=== PATIENT | female | born 1965 | race Caucasian/White ===

== ENCOUNTER 2016-12-12 01:14 | Emergency (ER) | payer BC ==
[2016-12-12 01:24] VITALS: BP 173/90
[2016-12-12 01:53] LABS: CHLORIDE,CL 106 mmol/L (101-111); SODIUM,NA 142 mmol/L (135-145)
--- NOTE | 2016-12-12 05:46 | EDM.PDOC ---
ED HPI GENERAL MEDICAL PROBLEM - General Chief Complaint: Cardiovascular Problem Stated Complaint: HEART FEELS FUNNY Time Seen by Provider: 12/12/16 01:25 Source of Information: Reports: Patient History Limitations: Reports: No Limitations - History of Present Illness INITIAL COMMENTS - FREE TEXT/NARRATIVE: ED with complaint of heart feeling different, like "flipping", mild discomfort to chest and epigastric, Reports feeling drained and wanting to sleep after. Onset: Today - Related Data Allergies Allergy/AdvReac Type Severity Reaction Status Date / Time aspirin Allergy unknown Verified 10/09/14 04:09 fentanyl Allergy Cannot Verified 12/12/16 01:20 Remember Home Meds: Home Meds Ferrous Sulfate [Iron Supplement] 325 mg PO DAILY 12/10/13 [History] Ursodiol [Ursodiol] 500 mg PO BID 12/10/13 [History] Acetaminophen [Tylenol Extra Strength] 1,000 mg PO Q6H PRN 10/07/14 [History] Docusate Sodium [Colace] 100 mg PO BID 10/07/14 [History] Ascorbic Acid [Vitamin C] 100 mg PO DAILY 11/20/14 [History] Amitriptyline HCl [Amitriptyline HCl] 50 mg PO DAILY 12/12/16 [History] Obeticholic Acid [Ocaliva] 10 mg PO DAILY 12/12/16 [History] Past Medical History Other Gastrointestinal History: PVC - Past Surgical History GI Surgical History: Reports: Appendectomy Female Surgical History: Reports: Hysterectomy Social & Family History - Family History Family Medical History: Noncontributory - Tobacco Use Smoking Status *Q: Never Smoker Second Hand Smoke Exposure: No - Caffeine Use Caffeine Use: Reports: Coffee - Alcohol Use Days Per Week of Alcohol Use: 0 - Recreational Drug Use Recreational Drug Use: No Drug Use in Last 12 Months: No - Living Situation & Occupation Occupation: Employed ED ROS GENERAL - Review of Systems Review Of Systems: See Below Constitutional: Reports: No Symptoms HEENT: Reports: Eye Discharge Respiratory: Reports: No Symptoms Cardiovascular: Reports: Chest Pain Endocrine: Reports: No Symptoms GI/Abdominal: Reports: No Symptoms Skin: Reports: No Symptoms Neurological: Reports: No Symptoms ED EXAM, GENERAL - Physical Exam Exam: See Below Exam Limited By: No Limitations General Appearance: Alert, Anxious Eye Exam: Bilateral Eye: EOMI, Normal Fundi Ears: Normal External Exam Ear Exam: Bilateral Ear: TM Red Nose: Normal Inspection Throat/Mouth: Normal Inspection Head: Atraumatic, Normocephalic Neck: Normal Inspection Respiratory/Chest: No Respiratory Distress, Lungs Clear Cardiovascular: Normal Peripheral Pulses, Regular Rate, Rhythm GI/Abdominal: Normal Bowel Sounds (Female) Exam: Cervical Fluid Course - Vital Signs Last Recorded V/S: Last Vital Signs Temp 97.4 F 12/12/16 01:22 Pulse 80 12/12/16 01:22 Resp 16 12/12/16 01:22 BP 173/90 H 12/12/16 01:22 Pulse Ox 100 12/12/16 01:22 - Orders/Labs/Meds Labs: Laboratory Tests 12/12/16 12/12/16 12/12/16 Range/Units 01:25 01:25 01:25 WBC 7.8 (5.0-10.0) 10^3/uL RBC 3.85 L (4.2-5.4) 10^6/uL Hgb 12.5 (12.0-16.0) g/dL Hct 38.4 (37.0-47.0) % MCV 99.7 (80-100) fL MCH 32.5 (27.0-34.0) pg MCHC 32.6 L (33.0-35.0) g/dL Plt Count 273 (150-450) 10^3/uL Neut % (Auto) 30.9 L (42.2-75.2) % Lymph % (Auto) 58.0 H (20.5-50.1) % [place] % (Auto) 9.3 H (2-8) % Eos % (Auto) 1.5 (1.0-3.0) % Baso % (Auto) 0.3 (0.0-1.0) % Sodium 142 (135-145) mmol/L Potassium 3.4 L (3.6-5.0) mmol/L Chloride 106 (101-111) mmol/L Carbon Dioxide 25.0 (21.0-31.0) mmol/L Anion Gap 14.4 BUN 20 H (7-18) mg/dL Creatinine 0.7 (0.6-1.3) mg/dL Est Cr Clr Drug Dosing 80.26 mL/min Estimated GFR (MDRD) > 60 BUN/Creatinine Ratio 28.57 Glucose 94 (74-105) mg/dL Calcium 9.4 (8.4-10.2) mg/dl Total Bilirubin 0.4 (0.2-1.0) mg/dL AST 37 (10-42) IU/L ALT 49 (10-60) IU/L Alkaline Phosphatase 158 H (42-121) IU/L CK-MB (CK-2) 6.50 H (0.4-4.7) ng/mL Troponin I 0.02 (0.00-0.02) ng/ml Total Protein 8.1 (6.7-8.2) g/dl Albumin 3.8 (3.2-5.5) g/dl Globulin 4.3 Albumin/Globulin Ratio 0.88 /04/18 Range/Units 05:13 WBC (5.0-10.0) 10^3/uL RBC (4.2-5.4) 10^6/uL Hgb (12.0-16.0) g/dL Hct (37.0-47.0) % MCV (80-100) fL MCH (27.0-34.0) pg MCHC (33.0-35.0) g/dL Plt Count (150-450) 10^3/uL Neut % (Auto) (42.2-75.2) % Lymph % (Auto) (20.5-50.1) % [place] % (Auto) (2-8) % Eos % (Auto) (1.0-3.0) % Baso % (Auto) (0.0-1.0) % Sodium (135-145) mmol/L Potassium (3.6-5.0) mmol/L Chloride (101-111) mmol/L Carbon Dioxide (21.0-31.0) mmol/L Anion Gap BUN (7-18) mg/dL Creatinine (0.6-1.3) mg/dL Est Cr Clr Drug Dosing mL/min Estimated GFR (MDRD) BUN/Creatinine Ratio Glucose (74-105) mg/dL Calcium (8.4-10.2) mg/dl Total Bilirubin (0.2-1.0) mg/dL AST (10-42) IU/L ALT (10-60) IU/L Alkaline Phosphatase (42-121) IU/L CK-MB (CK-2) (0.4-4.7) ng/mL Troponin I 0.02 (0.00-0.02) ng/ml Total Protein (6.7-8.2) g/dl Albumin (3.2-5.5) g/dl Globulin Albumin/Globulin Ratio - Radiology Interpretation Free Text/Narrative:: CXR normal Departure - Departure Time of Disposition: 05:46 Disposition: Home, Self-Care 01 Condition: Good Clinical Impression: Palpitations Instructions: Heart Attack, [id number] Referrals: Elfego Rizo MD [Primary Care Provider] - Forms: ED Department Discharge Additional Instructions: rest fluids Urgent follow up if chest pain Limit caffeine and energy drinks
--- NOTE | 2016-12-21 10:00 | EKG ---
12/12/2016- MELITON OZUNA - This is a standard 12-lead EKG showing normal sinus rhythm, with ventricular rate 86 beats per minute. Normal QRS duration. Normal [place] interval. No significant ST-T changes. [facility] /[id number]
== END 2016-12-12 05:59 | disposition home or self-care (01) ==
LOC: DL.ED 01:14
DX: R00.2 Palpitations (principal); Z88.6 Allergy status to analgesic agent; Z88.1 Allergy status to other antibiotic agents; Z79.899 Other long term (current) drug therapy; Z90.49 Acquired absence of other specified parts of digestive tract; Z90.710 Acquired absence of both cervix and uterus
CPT/HCPCS: 36415; 71010; 80053; 82553; 84484; 85025; 93005; 99285

== ENCOUNTER 2016-12-12 14:46 | Emergency (ER) | payer BC ==
[2016-12-12 15:09] VITALS: BP 156/88
[2016-12-12 17:22] LABS: CHLORIDE,CL 104 mmol/L (101-111); SODIUM,NA 140 mmol/L (135-145)
--- NOTE | 2016-12-21 10:03 | EKG ---
12/12/2016- MELITON OZUNA - This is a 12-lead standard EKG showing normal sinus rhythm, with ventricular rate 84 beats per minute. Normal MT interval, QRS duration. Normal axis. No significant ST-T changes. [facility] /[id number]
--- NOTE | 2017-01-01 08:45 | EDM.PDOC ---
Scribed by Katie Dexter 12/12/16 [id number] for Michael Al MD ED HPI GENERAL MEDICAL PROBLEM - General Chief Complaint: General Stated Complaint: FEELING SEEK Time Seen by Provider: 12/12/16 16:35 Source of Information: Reports: Patient, RN, RN Notes Reviewed History Limitations: Reports: No Limitations - History of Present Illness INITIAL COMMENTS - FREE TEXT/NARRATIVE: Patient arrived by POV with complaint of recurrent palpitations. She was seen in ER earlier today with the same complaint and had a negative work up. Returns because the symptoms persist. Location: Reports: Chest Quality: Reports: Ache Severity: Moderate Improves with: Reports: None Worsens with: Reports: None Associated Symptoms: Reports: No Other Symptoms - Related Data Allergies Allergy/AdvReac Type Severity Reaction Status Date / Time aspirin Allergy unknown Verified 10/09/14 04:09 fentanyl Allergy Cannot Verified 12/12/16 01:20 Remember Home Meds: Home Meds Ferrous Sulfate [Iron Supplement] 325 mg PO DAILY 12/10/13 [History] Ursodiol [Ursodiol] 500 mg PO BID 12/10/13 [History] Acetaminophen [Tylenol Extra Strength] 1,000 mg PO Q6H PRN 10/07/14 [History] Docusate Sodium [Colace] 100 mg PO BID 10/07/14 [History] Ascorbic Acid [Vitamin C] 100 mg PO DAILY 11/20/14 [History] Amitriptyline HCl [Amitriptyline HCl] 50 mg PO DAILY 12/12/16 [History] Obeticholic Acid [Ocaliva] 10 mg PO DAILY 12/12/16 [History] Past Medical History HEENT History: Reports: Impaired Vision Other Gastrointestinal History: PVC Psychiatric History: Reports: Anxiety - Past Surgical History GI Surgical History: Reports: Appendectomy, Cholecystectomy Female Surgical History: Reports: Hysterectomy Musculoskeletal Surgical History: Reports: Carpal Tunnel Social & Family History - Family History Family Medical History: Noncontributory - Tobacco Use Smoking Status *Q: Never Smoker Second Hand Smoke Exposure: No - Caffeine Use Caffeine Use: Reports: Coffee, Tea - Alcohol Use Days Per Week of Alcohol Use: 0 - Recreational Drug Use Recreational Drug Use: No Drug Use in Last 12 Months: No - Living Situation & Occupation Occupation: Employed ED ROS GENERAL - Review of Systems Review Of Systems: ROS reveals no pertinent complaints other than HPI. ED EXAM, GENERAL - Physical Exam Exam: See Below Exam Limited By: No Limitations General Appearance: Alert, WD/WN, No Apparent Distress Eye Exam: Bilateral Eye: Normal Inspection Ears: Normal External Exam, Normal Canal, Hearing Grossly Normal, Normal TMs Nose: Normal Inspection, Normal Mucosa, No Blood Throat/Mouth: Normal Inspection, Normal Lips, Normal Teeth, Normal Gums, Normal Oropharynx, Normal Voice, No Airway Compromise Head: Atraumatic, Normocephalic Neck: Normal Inspection, Supple, Non-Tender, Full Range of Motion Respiratory/Chest: No Respiratory Distress, Lungs Clear, Normal Breath Sounds, No Accessory Muscle Use, Chest Non-Tender Cardiovascular: Normal Peripheral Pulses, Regular Rate, Rhythm, No Edema, No Gallop, No JVD, No Murmur, No Rub GI/Abdominal: Normal Bowel Sounds, Soft, Non-Tender, No Organomegaly, No Distention, No Abnormal Bruit, No Mass (Female) Exam: Deferred Rectal (Female) Exam: Deferred Back Exam: Normal Inspection, Full Range of Motion, NT Extremities: Normal Inspection, Normal Range of Motion, Non-Tender, Normal Capillary Refill, No Pedal Edema Neurological: Alert, Oriented, CN II-XII Intact, Normal Cognition, Normal Gait, Normal Reflexes, No Motor/Sensory Deficits Psychiatric: Anxious Skin Exam: Warm, Dry, Intact, Normal Color, No Rash EKG INTERPRETATION EKG Date: 12/12/16 Time: 16:47 Rhythm: Other (sinus rhythm) Rate (Beats/Min): 85 [place]: Normal P-Wave: Present QRS: Normal ST-T: Normal QT: Normal Course - Vital Signs Last Recorded V/S: Last Vital Signs Temp 36.7 C 12/12/16 15:08 Pulse 74 12/12/16 15:08 Resp 16 12/12/16 15:08 BP 156/88 H 12/12/16 15:08 Pulse Ox 100 12/12/16 15:08 - Orders/Labs/Meds Labs: Laboratory Tests 12/12/16 12/12/16 12/12/16 Range/Units 16:57 16:57 16:57 WBC 5.9 (5.0-10.0) 10^3/uL RBC 3.71 L (4.2-5.4) 10^6/uL Hgb 12.0 (12.0-16.0) g/dL Hct 37.2 (37.0-47.0) % MCV 100.3 H (80-100) fL MCH 32.3 (27.0-34.0) pg MCHC 32.3 L (33.0-35.0) g/dL Plt Count 279 (150-450) 10^3/uL Neut % (Auto) 37.9 L (42.2-75.2) % Lymph % (Auto) 52.5 H (20.5-50.1) % [place] % (Auto) 8.1 H (2-8) % Eos % (Auto) 1.2 (1.0-3.0) % Baso % (Auto) 0.3 (0.0-1.0) % Sodium 140 (135-145) mmol/L Potassium 4.5 (3.6-5.0) mmol/L Chloride 104 (101-111) mmol/L Carbon Dioxide 25.0 (21.0-31.0) mmol/L Anion Gap 15.5 BUN 17 (7-18) mg/dL Creatinine 0.7 (0.6-1.3) mg/dL Est Cr Clr Drug Dosing TNP Estimated GFR (MDRD) > 60 BUN/Creatinine Ratio 24.28 Glucose 94 (74-105) mg/dL Calcium 9.3 (8.4-10.2) mg/dl Magnesium 2.1 (1.8-2.5) mg/dL Total Bilirubin 0.3 (0.2-1.0) mg/dL AST 36 (10-42) IU/L ALT 49 (10-60) IU/L Alkaline Phosphatase 158 H (42-121) IU/L Troponin I < 0.02 (0.00-0.02) ng/ml Total Protein 8.1 (6.7-8.2) g/dl Albumin 3.8 (3.2-5.5) g/dl Globulin 4.3 Albumin/Globulin Ratio 0.88 TSH, Ultra Sensitive 2.44 (0.35-7.0) uIu/mL Departure - Departure Time of Disposition: 18:49 Disposition: Home, Self-Care 01 Condition: Fair Clinical Impression: Palpitations - Discharge Information Instructions: Palpitations, [id number] Referrals: Darrius,Somasundar, MD [Primary Care Provider] - Forms: ED Department Discharge Additional Instructions: Follow up in clinic on Wednesday. Have your doctor review the ER visits and diagnostic results and discuss a 7 day cardiac event monitor with your doctor. Avoid caffeine, decongestants or any other stimulants. I have read and agree with the documentation that has been completed regarding this visit. By signing this record, I attest that the documentation was completed in my physical presence and is an accurate record of the encounter.
== END 2016-12-12 19:05 | disposition home or self-care (01) ==
LOC: DL.ED 14:46
DX: R00.2 Palpitations (principal); F41.9 Anxiety disorder, unspecified; Z90.49 Acquired absence of other specified parts of digestive tract; Z90.710 Acquired absence of both cervix and uterus; Z98.890 Other specified postprocedural states; Z79.899 Other long term (current) drug therapy; Z88.8 Allergy status to other drugs, medicaments and biological substances
CPT/HCPCS: 36415; 80053; 83735; 84443; 84484; 85025; 93005; 99285

== ENCOUNTER 2017-08-03 15:46 | Emergency (ER) | payer BC ==
[2017-08-03 16:01] VITALS: BP 167/82
[2017-08-03] MEDS ORDERED: Sodium Chloride 0.9% 1,000 ML IV ONE (16:16)
[2017-08-03] MEDS ORDERED: Ketorolac 30 MG/ML SDV IVPUSH ONE (16:16)
[2017-08-03] MEDS ORDERED: Ondansetron 4 MG/2 ML SDV IV ONE (16:16)
[2017-08-03] MEDS ORDERED: HYDROmorphone 0.5 MG/0.5 ML Syringe IVPUSH ONE ×2 (16:17→17:11)
[2017-08-03] MEDS ORDERED: Gabapentin 300 MG Cap PO ONE (17:17)
--- NOTE | 2017-08-03 17:26 | EDM.PDOC ---
Scribed by Katie Dexter 08/03/17 [id number] for Michael Al MD ED HPI GENERAL MEDICAL PROBLEM - General Chief Complaint: Headache Stated Complaint: [id number] HEADACHE Time Seen by Provider: 08/03/17 15:50 Source of Information: Reports: Patient, RN, RN Notes Reviewed History Limitations: Reports: No Limitations - History of Present Illness INITIAL COMMENTS - FREE TEXT/NARRATIVE: Patient presents with complaint of onset of generalized headache on Wednesday, , that gradually developed throughout the day and has been persistent since. Patient has history of chronic headaches with the same symptoms as this headache, but they usually resolve in less than 2-3 days with rest and generic Excedrin. She has taken the generic Excedrin but this time it hasn't helped. She admits to photophobia and nausea. Denies vomiting or visual symptoms. 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) Headache Pain Score (Numeric/FACES): 7 - Related Data Allergies Allergy/AdvReac Type Severity Reaction Status Date / Time aspirin Allergy Bleeding Verified 08/03/17 15:50 fentanyl Allergy Difficulty Verified 08/03/17 16:08 Breathing latex Allergy Rash Verified 08/03/17 15:50 Home Meds: Home Meds Ferrous Sulfate [Iron Supplement] 325 mg PO DAILY 12/10/13 [History] Ursodiol 500 mg PO BID 12/10/13 [History] Acetaminophen [Tylenol Extra Strength] 1,000 mg PO Q6H PRN 10/07/14 [History] Docusate Sodium [Colace] 100 mg PO BID 10/07/14 [History] Ascorbic Acid [Vitamin C] 100 mg PO DAILY 11/20/14 [History] Amitriptyline HCl 35 mg PO BEDTIME 12/12/16 [History] Obeticholic Acid [Ocaliva] 10 mg PO DAILY 12/12/16 [History] Multivitamin [Multivitamins] 1 cap PO DAILY 08/03/17 [History] Past Medical History HEENT History: Reports: Impaired Vision, Other (See Below) Gastrointestinal History: Reports: Other (See Below) (nonalcoholic liver disease.) Other Gastrointestinal History: PVC Musculoskeletal History: Reports: Other (See Below) (trigger finger) Neurological History: Reports: Headaches, Chronic Psychiatric History: Reports: Anxiety - Past Surgical History GI Surgical History: Reports: Appendectomy, Cholecystectomy Female Surgical History: Reports: Hysterectomy Musculoskeletal Surgical History: Reports: Carpal Tunnel, Other (See Below) ( trigger finger release) Social & Family History - Family History Family Medical History: Noncontributory - Tobacco Use Smoking Status *Q: Never Smoker Second Hand Smoke Exposure: No - Caffeine Use Caffeine Use: Reports: Coffee, Tea - Alcohol Use Days Per Week of Alcohol Use: 0 - Recreational Drug Use Recreational Drug Use: No Drug Use in Last 12 Months: No - Living Situation & Occupation Occupation: Employed ED ROS GENERAL - Review of Systems Review Of Systems: ROS reveals no pertinent complaints other than HPI. - Physical Exam Exam: See Below Exam Limited By: No Limitations General Appearance: Alert, WD/WN, No Apparent Distress Eye Exam: Bilateral Eye: Other (photophobia) Ears: Normal External Exam, Normal Canal, Hearing Grossly Normal, Normal TMs Nose: Normal Inspection, Normal Mucosa, No Blood Throat/Mouth: Normal Inspection, Normal Lips, Normal Teeth, Normal Gums, Normal Oropharynx, Normal Voice, No Airway Compromise Head Exam: Atraumatic, Normocephalic Respiratory/Chest: Other (paraspinal muscle tenderness or spasms) Cardiovascular: Normal Peripheral Pulses GI/Abdominal: Normal Bowel Sounds, Soft, Non-Tender, No Organomegaly, No Distention, No Abnormal Bruit, No Mass (Female) Exam: Deferred Rectal (Female) Exam: Deferred Neuro Exam (Abbreviated): Alert, Oriented, CN II-XII Intact, Normal Cognition, Normal Gait, Normal Reflexes, No Motor/Sensory Deficits Back Exam: Normal Inspection, Full Range of Motion, NT Extremities: Normal Inspection, Normal Range of Motion, Non-Tender, No Pedal Edema, Normal Capillary Refill Psychiatric: Normal Affect, Normal Mood Skin Exam: Warm, Dry, Intact, Normal Color, No Rash Course - Vital Signs Last Recorded V/S: Last Vital Signs Temp 35.9 C 08/03/17 15:59 Pulse 69 08/03/17 15:59 Resp 18 08/03/17 15:59 BP 167/82 H 04/03/18 15:59 Pulse Ox 100 08/03/17 15:59 - Orders/Labs/Meds Meds: Medications Discontinued Medications Generic Name Dose Route Start Last Admin Trade Name Aj PRN Reason Stop Dose Admin Gabapentin 300 mg 08/03/17 17:17 Neurontin PO 08/03/17 17:18 ONETIME ONE Hydromorphone HCl 0.25 mg 08/03/17 16:17 08/03/17 16:32 Dilaudid IVPUSH 08/03/17 16:18 0.25 mg ONETIME ONE Administration Hydromorphone HCl 0.25 mg 08/03/17 17:11 08/03/17 17:17 Dilaudid IVPUSH 08/03/17 17:12 0.25 mg ONETIME ONE Administration Sodium Chloride 1,000 mls @ 999 mls/hr 08/03/17 16:16 08/03/17 16:30 Normal Saline IV 08/03/17 17:16 999 mls/hr .BOLUS ONE Administration Ketorolac Tromethamine 30 mg 08/03/17 16:16 08/03/17 16:32 Toradol IVPUSH 08/03/17 16:17 30 mg ONETIME ONE Administration Ondansetron HCl 4 mg 08/03/17 16:16 08/03/17 16:32 Zofran IV 08/03/17 16:17 4 mg ONETIME ONE Administration Departure - Departure Time of Disposition: 17:26 Disposition: Home, Self-Care 01 Condition: Good Clinical Impression: Headache syndrome Headache Qualifiers: Headache type: unspecified Headache chronicity pattern: chronic headache Intractability: intractable Qualified Code(s): R51 - Headache - Discharge Information Instructions: General Headache Without Cause Forms: ED Department Discharge Additional Instructions: Rx: Reglan (Metoclopramide) 10mg *Do not drive or work while under the influence of this medication. Rx: Gabapentin 300mg *Do not drive or work while under the influence of this medication. Drink plenty of water. Follow up in clinic with your doctor if not improved in 1 to 2 days. Return to ER if worse at any time, or if any new symptoms develop. I have read and agree with the documentation that has been completed regarding this visit. By signing this record, I attest that the documentation was completed in my physical presence and is an accurate record of the encounter.
== END 2017-08-03 17:52 | disposition home or self-care (01) ==
LOC: DL.ED 15:46
DX: G44.89 Other headache syndrome (principal); Z88.6 Allergy status to analgesic agent; Z91.040 Latex allergy status; Z79.899 Other long term (current) drug therapy
CPT/HCPCS: 96361; 96374; 96375; 96376; 99284; A9270; J1170; J1885; J2405; J7030

== ENCOUNTER 2019-03-09 18:51 | Emergency (ER) | payer BC ==
[2019-03-09 18:56] VITALS: BP 136/77; PULSE 71
[2019-03-09] MEDS ORDERED: Sodium Chloride 0.9% 1,000 ML IV ONE (19:01)
[2019-03-09] MEDS ORDERED: Ondansetron 4 MG/2 ML SDV IV ONE (19:01)
[2019-03-09] MEDS ORDERED: Ketorolac 30 MG/ML SDV IVPUSH ONE (19:01)
[2019-03-09] MEDS ORDERED: diphenhydrAMINE 50 MG/ML SDV IVPUSH ONE (19:01)
--- NOTE | 2019-03-09 19:09 | EDM.PDOC ---
ED HPI GENERAL MEDICAL PROBLEM - General Chief Complaint: Headache Stated Complaint: MIGRAINE Time Seen by Provider: 03/09/19 19:08 Source of Information: Reports: Patient, RN History Limitations: Reports: No Limitations - History of Present Illness INITIAL COMMENTS - FREE TEXT/NARRATIVE: C/o frontal headache radiating across top of head, similar to usual headaches. Usually controlled with tylenol. Has not had one this bad for awhile. No triggers. Nausea no vomiting. light and sound sensitive. No relief with Excedrin migraine. Reports chronic daily headaches. Headache Pain Score (Numeric/FACES): 9 - Related Data Allergies Allergy/AdvReac Type Severity Reaction Status Date / Time aspirin Allergy Bleeding Verified 03/09/19 18:56 fentanyl Allergy Difficulty Verified 03/09/19 18:56 Breathing latex Allergy Rash Verified 03/09/19 18:56 Home Meds: Home Meds Ferrous Sulfate [Iron Supplement] 325 mg PO DAILY 12/10/13 [History] Ursodiol 500 mg PO BID 12/10/13 [History] Acetaminophen [Tylenol Extra Strength] 1,000 mg PO Q6H PRN 10/07/14 [History] Docusate Sodium [Colace] 100 mg PO BID 10/07/14 [History] Ascorbic Acid [Vitamin C] 100 mg PO DAILY 11/20/14 [History] Multivitamin [Multivitamins] 1 cap PO DAILY 08/03/17 [History] Past Medical History HEENT History: Reports: Impaired Vision Cardiovascular History: Reports: None Respiratory History: Reports: None Gastrointestinal History: Reports: Other (See Below) Other Gastrointestinal History: PVC Genitourinary History: Reports: None 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 Musculoskeletal History: Reports: Other (See Below) (trigger finger) Neurological History: Reports: Headaches, Chronic Psychiatric History: Reports: Anxiety Endocrine/Metabolic History: Reports: None Hematologic History: 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 Immunologic History: Reports: None Oncologic (Cancer) History: Reports: None Dermatologic History: Reports: None - Infectious Disease History Infectious Disease History: Reports: Chicken Pox, Mumps - Past Surgical History Head Surgeries/Procedures: Reports: None GI Surgical History: Reports: Appendectomy, Cholecystectomy Female Surgical History: Reports: Hysterectomy Musculoskeletal Surgical History: Reports: Carpal Tunnel Social & Family History - Family History Family Medical History: Noncontributory - Tobacco Use Smoking Status *Q: Never Smoker Second Hand Smoke Exposure: No - Caffeine Use Caffeine Use: Reports: Coffee, Tea - Recreational Drug Use Recreational Drug Use: No - Living Situation & Occupation Occupation: Employed ED ROS GENERAL - Review of Systems Review Of Systems: ROS reveals no pertinent complaints other than HPI. - Physical Exam Exam: See Below Exam Limited By: No Limitations General Appearance: Alert, Moderate Distress, Thin Eye Exam: Bilateral Eye: EOMI, PERRL Ears: Normal External Exam, Hearing Grossly Normal Nose: Normal Inspection Throat/Mouth: Normal Inspection Head Exam: Atraumatic, Normocephalic Neck: Normal Inspection, Non-Tender, Full Range of Motion Respiratory/Chest: No Respiratory Distress, Lungs Clear, Normal Breath Sounds Cardiovascular: Normal Peripheral Pulses, Regular Rate, Rhythm Neuro Exam (Abbreviated): Alert, Oriented, Normal Cognition Extremities: Normal Range of Motion Psychiatric: Normal Affect, Normal Mood Skin Exam: Warm, Dry, Intact, Normal Color Course - Vital Signs Last Recorded V/S: Last Vital Signs Temp 97 F 03/09/19 18:53 Pulse 71 03/09/19 18:53 Resp 18 03/09/19 18:53 BP 136/77 03/09/19 18:53 Pulse Ox 100 03/09/19 18:53 - Orders/Labs/Meds Orders: Active Orders 24 hr Category Date Time Status Sodium Chloride 0.9% [Normal Saline] 1,000 ml Med 03/09/19 19:01 Active IV .BOLUS Medication Orders Sodium Chloride (Normal Saline) 1,000 mls @ 999 mls/hr IV .BOLUS ONE Stop: 03/09/19 20:01 Last Admin: 03/09/19 19:09 Dose: 999 mls/hr Labs: Laboratory Tests 03/09/19 03/09/19 Range/Units 19:08 19:08 WBC 5.6 (5.0-10.0) 10^3/uL RBC 3.84 L (4.2-5.4) 10^6/uL Hgb 12.4 (12.0-16.0) g/dL Hct 37.6 (37.0-47.0) % MCV 97.9 (80-100) fL MCH 32.3 (27.0-34.0) pg MCHC 33.0 (33.0-35.0) g/dL Plt Count 242 D (150-450) 10^3/uL Neut % (Auto) 41.0 L (42.2-75.2) % Lymph % (Auto) 46.7 (20.5-50.1) % [place] % (Auto) 9.1 H (2-8) % Eos % (Auto) 2.7 (1.0-3.0) % Baso % (Auto) 0.5 (0.0-1.0) % Sodium 138 (135-145) mmol/L Potassium 4.2 (3.6-5.0) mmol/L Chloride 103 (101-111) mmol/L Carbon Dioxide 25.0 (21.0-31.0) mmol/L Anion Gap 14.2 BUN 23 H (7-18) mg/dL Creatinine 0.8 (0.6-1.3) mg/dL Est Cr Clr Drug Dosing 68.61 mL/min Estimated GFR (MDRD) > 60 BUN/Creatinine Ratio 28.75 Glucose 98 (74-105) mg/dL Calcium 9.5 (8.4-10.2) mg/dl Total Bilirubin 0.8 (0.2-1.0) mg/dL AST 76 H (10-42) IU/L ALT 80 H (10-60) IU/L Alkaline Phosphatase 333 H (42-121) IU/L Total Protein 8.0 (6.7-8.2) g/dl Albumin 3.7 (3.2-5.5) g/dl Globulin 4.3 Albumin/Globulin Ratio 0.86 Meds: Medications Generic Name Dose Route Start Last Admin Trade Name Cesarioq PRN Reason Stop Dose Admin Sodium Chloride 1,000 mls @ 999 mls/hr 03/09/19 19:01 03/09/19 19:09 Normal Saline IV 03/09/19 20:01 999 mls/hr .BOLUS ONE Administration Discontinued Medications Generic Name Dose Route Start Last Admin Trade Name Freq PRN Reason Stop Dose Admin Diphenhydramine HCl 25 mg 03/09/19 19:01 03/09/19 19:12 Benadryl IVPUSH 03/09/19 19:02 25 mg ONETIME ONE Administration Ketorolac Tromethamine 30 mg 03/09/19 19:01 03/09/19 19:15 Toradol IVPUSH 03/09/19 19:02 30 mg ONETIME ONE Administration Ondansetron HCl 4 mg 03/09/19 19:01 03/09/19 19:10 Zofran IV 03/09/19 19:02 4 mg ONETIME ONE Administration - Re-Assessments/Exams Free Text/Narrative Re-Assessment/Exam: 03/09/19 19:31 Headache improving Departure - Departure Time of Disposition: 19:56 Disposition: Home, Self-Care 01 Condition: Good Clinical Impression: Migraine - Discharge Information *PRESCRIPTION DRUG MONITORING PROGRAM REVIEWED*: No *COPY OF PRESCRIPTION DRUG MONITORING REPORT IN PATIENT PACO: No Instructions: Recurrent Migraine Headache, [id number] Forms: ED Department Discharge Additional Instructions: Rest increase fluids follow up as needed - My Orders Last 24 Hours: My Active Orders 03/09/19 19:01 Sodium Chloride 0.9% [Normal Saline] 1,000 ml IV .BOLUS - Assessment/Plan Last 24 Hours: My Active Orders 03/09/19 19:01 Sodium Chloride 0.9% [Normal Saline] 1,000 ml IV .BOLUS
[2019-03-09 19:36] LABS: ANION GAP 14.2; CHLORIDE,CL 103 mmol/L (101-111); SODIUM,NA 138 mmol/L (135-145)
== END 2019-03-09 20:04 | disposition home or self-care (01) ==
LOC: DL.ED 18:51
DX: G43.909 Migraine, unspecified, not intractable, without status migrainosus (principal); Z88.6 Allergy status to analgesic agent; Z88.5 Allergy status to narcotic agent; Z91.040 Latex allergy status
CPT/HCPCS: 36415; 80053; 85025; 99284; J1200; J1885; J2405; J7030

== ENCOUNTER 2019-07-15 18:38 | Emergency (ER) | payer BC ==
[2019-07-15] MEDS ORDERED: Acetaminophen/HYDROcodone 325-5 MG Tab PO ONE (18:39)
--- NOTE | 2019-07-15 19:00 | EDM.PDOC ---
ED HPI GENERAL MEDICAL PROBLEM - General Chief Complaint: Chest Pain Stated Complaint: CHEST PAIN Time Seen by Provider: 07/15/19 18:55 Source of Information: Reports: Patient History Limitations: Reports: No Limitations - History of Present Illness INITIAL COMMENTS - FREE TEXT/NARRATIVE: C/O anterior left chest pain worsening since yesterday. Pain worse with deep breathing and movement. Constant since yesterday . No cough No fever or chills. URI 2 weeks ago. No nausea No radiation of pain Left Chest Pain Score (Numeric/FACES): 6 - Related Data Allergies Allergy/AdvReac Type Severity Reaction Status Date / Time aspirin Allergy Bleeding Verified 07/15/19 19:06 fentanyl Allergy Difficulty Verified 07/15/19 19:06 Breathing latex Allergy Rash Verified 07/15/19 19:06 Home Meds: Home Meds Ferrous Sulfate [Iron Supplement] 325 mg PO DAILY 12/10/13 [History] Ursodiol 1,000 mg PO DAILY 12/10/13 [History] Acetaminophen [Tylenol Extra Strength] 1,000 mg PO Q6H PRN 10/07/14 [History] Docusate Sodium [Colace] 100 mg PO BID 10/07/14 [History] Ascorbic Acid [Vitamin C] 100 mg PO DAILY 11/20/14 [History] Multivitamin [Multivitamins] 1 cap PO DAILY 08/03/17 [History] Past Medical History HEENT History: Reports: Impaired Vision Cardiovascular History: Reports: None Respiratory History: Reports: None Gastrointestinal History: Reports: Other (See Below) Other Gastrointestinal History: PVC Genitourinary History: Reports: None SPRING SETTER History: Reports: None Musculoskeletal History: Reports: Other (See Below) (trigger finger) Neurological History: Reports: Headaches, Chronic Psychiatric History: Reports: Anxiety Endocrine/Metabolic History: Reports: None Hematologic History: 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 Immunologic History: Reports: None Oncologic (Cancer) History: Reports: None Dermatologic History: Reports: None - Infectious Disease History Infectious Disease History: Reports: Chicken Pox, Mumps - Past Surgical History Head Surgeries/Procedures: Reports: None GI Surgical History: Reports: Appendectomy, Cholecystectomy Female Surgical History: Reports: Hysterectomy Musculoskeletal Surgical History: Reports: Carpal Tunnel Social & Family History - Family History Family Medical History: Noncontributory - Caffeine Use Caffeine Use: Reports: Coffee, Tea - Living Situation & Occupation Occupation: Employed ED ROS GENERAL - Review of Systems Review Of Systems: Comprehensive ROS is negative, except as noted in HPI. ED EXAM, GENERAL - Physical Exam Exam: See Below Exam Limited By: No Limitations General Appearance: Alert, Anxious, Mild Distress, Thin Eye Exam: Bilateral Eye: EOMI Ears: Normal External Exam, Normal TMs Nose: Normal Inspection Throat/Mouth: Normal Inspection Head: Atraumatic, Normocephalic Neck: Normal Inspection Respiratory/Chest: No Respiratory Distress, Lungs Clear. No: Chest Non-Tender ( left upper anterior pain with palpation and movmement), Rales, Rhonchi, Wheezing , Pleural Rub Cardiovascular: Normal Peripheral Pulses, Regular Rate, Rhythm GI/Abdominal: Normal Bowel Sounds, Soft, Non-Tender Back Exam: Full Range of Motion Extremities: Normal Inspection Neurological: Alert, Oriented, Normal Cognition Psychiatric: Normal Affect, Normal Mood Skin Exam: Warm, Dry, Intact, Normal Color Course - Vital Signs Last Recorded V/S: Last Vital Signs Temp 98.1 F 07/15/19 18:38 Pulse 85 07/15/19 18:38 Resp 14 07/15/19 18:38 BP 137/70 07/15/19 18:38 Pulse Ox 99 07/15/19 18:38 - Orders/Labs/Meds Orders: Active Orders 24 hr Category Date Time Status Cardiac Monitoring [RC] . DIRECTED Care 07/15/19 18:56 Active Cardiac Monitoring [RC] . DIRECTED Care 07/15/19 18:58 Active EKG Documentation Completion [RC] STAT Care 07/15/19 18:57 Active Labs: Laboratory Tests 07/15/19 07/15/19 07/15/19 Range/Units 18:48 18:48 18:48 WBC 5.5 (5.0-10.0) 10^3/uL RBC 3.41 L (4.2-5.4) 10^6/uL Hgb 10.8 L D (12.0-16.0) g/dL Hct 33.3 L (37.0-47.0) % MCV 97.7 (80-100) fL MCH 31.7 (27.0-34.0) pg MCHC 32.4 L (33.0-35.0) g/dL Plt Count 256 (150-450) 10^3/uL Neut % (Auto) 36.5 L (42.2-75.2) % Lymph % (Auto) 50.8 H (20.5-50.1) % [place] % (Auto) 9.9 H (2-8) % Eos % (Auto) 2.4 (1.0-3.0) % Baso % (Auto) 0.4 (0.0-1.0) % PT 9.9 (9.0-12.0) SEC INR 1.0 (0.9-1.2) D-Dimer, Quantitative < 100 (0-400) ng/mL Sodium 138 (136-145) mmol/L Potassium 3.9 (3.5-5.1) mmol/L Chloride 102 (98-107) mmol/L Carbon Dioxide 27 (21-32) mmol/L Anion Gap 12.9 (7-13) mEq/L BUN 22 H (7-18) mg/dL Creatinine 0.77 (0.55-1.02) mg/dL Est Cr Clr Drug Dosing TNP Estimated GFR (MDRD) > 60 BUN/Creatinine Ratio 28.6 (No establ ref range) Glucose 91 (74-99) mg/dL Calcium 8.5 (8.5-10.1) mg/dL Magnesium 2.3 (1.8-2.4) mg/dL Total Bilirubin 0.4 (0.2-1.0) mg/dL AST 53 H (15-37) U/L ALT 89 H (14-59) U/L Alkaline Phosphatase 341 H (46-116) U/L CK-MB (CK-2) (0.0-3.6) ng/mL Troponin I < 0.017 (0.000-0.056) ng/mL B-Natriuretic Peptide 24 (0-100) pg/ml Total Protein 7.8 (6.4-8.2) g/dL Albumin 3.5 (3.4-5.0) g/dL Globulin 4.3 Albumin/Globulin Ratio 0.8 Amylase 49 (25-115) U/L Lipase 176 (73-393) U/L 14 Range/Units 18:48 WBC (5.0-10.0) 10^3/uL RBC (4.2-5.4) 10^6/uL Hgb (12.0-16.0) g/dL Hct (37.0-47.0) % MCV (80-100) fL MCH (27.0-34.0) pg MCHC (33.0-35.0) g/dL Plt Count (150-450) 10^3/uL Neut % (Auto) (42.2-75.2) % Lymph % (Auto) (20.5-50.1) % [place] % (Auto) (2-8) % Eos % (Auto) (1.0-3.0) % Baso % (Auto) (0.0-1.0) % PT (9.0-12.0) SEC INR (0.9-1.2) D-Dimer, Quantitative (0-400) ng/mL Sodium (136-145) mmol/L Potassium (3.5-5.1) mmol/L Chloride (98-107) mmol/L Carbon Dioxide (21-32) mmol/L Anion Gap (7-13) mEq/L BUN (7-18) mg/dL Creatinine (0.55-1.02) mg/dL Est Cr Clr Drug Dosing Estimated GFR (MDRD) BUN/Creatinine Ratio (No establ ref range) Glucose (74-99) mg/dL Calcium (8.5-10.1) mg/dL Magnesium (1.8-2.4) mg/dL Total Bilirubin (0.2-1.0) mg/dL AST (15-37) U/L ALT (14-59) U/L Alkaline Phosphatase (46-116) U/L CK-MB (CK-2) 2.3 (0.0-3.6) ng/mL Troponin I (0.000-0.056) ng/mL B-Natriuretic Peptide (0-100) pg/ml Total Protein (6.4-8.2) g/dL Albumin (3.4-5.0) g/dL Globulin Albumin/Globulin Ratio Amylase (25-115) U/L Lipase (73-393) U/L Meds: Medications Discontinued Medications Generic Name Dose Route Start Last Admin Trade Name Freq PRN Reason Stop Dose Admin Hydrocodone Bitart/Acetaminophen Confirm 07/15/19 20:23 [place] 325-5 Mg Administered 07/15/19 20:24 Dose 1 tab .ROUTE .STK-MED ONE Departure - Departure Time of Disposition: 20:18 Disposition: Home, Self-Care 01 Condition: Good Clinical Impression: Exposure to influenza, Costal chondritis Instructions: Costochondritis, [id number] Forms: ED Department Discharge Additional Instructions: norco 5/325 one at bed if nedded for severe pain warm pack to chest area ibuprofen 600mg one every 6 hour as needed for discomfort rest follow up as needed if become symptomatic with flu symptoms due to recent exposure tamiflu 75mg one twice daily for 5 days Sepsis Event Note - Focused Exam Vital Signs: Vital Signs Temp Pulse Resp BP Pulse Ox 07/15/19 18:38 98.1 F 85 14 137/70 99 Date Exam was Performed: 07/16/19 Time Exam was Performed: 05:18 - My Orders Last 24 Hours: My Active Orders 07/15/19 18:56 Cardiac Monitoring [RC] . DIRECTED 07/15/19 18:57 EKG Documentation Completion [RC] STAT 07/15/19 18:58 Cardiac Monitoring [RC] . DIRECTED - Assessment/Plan Last 24 Hours: My Active Orders 07/15/19 18:56 Cardiac Monitoring [RC] . DIRECTED 07/15/19 18:57 EKG Documentation Completion [RC] STAT 07/15/19 18:58 Cardiac Monitoring [RC] . DIRECTED
[2019-07-15 19:06] VITALS: BP 137/70; PULSE 85
[2019-07-15 19:19] LABS: ANION GAP 12.9 mEq/L (7-13); CHLORIDE,CL 102 mmol/L (98-107); SODIUM,NA 138 mmol/L (136-145)
[2019-07-15] MEDS ORDERED: Acetaminophen/HYDROcodone 325-5 MG Tab ONE (20:23)
== END 2019-07-15 20:31 | disposition home or self-care (01) ==
LOC: DL.ED 18:38
DX: M94.0 Chondrocostal junction syndrome [Tietze] (principal); Z20.828 Contact with and (suspected) exposure to other viral communicable diseases; Z88.6 Allergy status to analgesic agent; Z88.8 Allergy status to other drugs, medicaments and biological substances; Z91.040 Latex allergy status; Z79.899 Other long term (current) drug therapy
CPT/HCPCS: 36415; 71045; 80053; 82150; 82553; 83690; 83735; 83880; 84484; 85025; 85379; 85610; 93005; 99285; A9270

== ENCOUNTER 2022-06-05 22:18 | Emergency (ER) | payer BC ==
[2022-06-05 22:40] VITALS: BP 190/94; PULSE 87
[2022-06-05] MEDS ORDERED: Ketorolac 30 MG/ML SDV IM ONE (22:44)
[2022-06-05 23:25] LABS: CORONAVIRUS COVID-19 NAA NEGATIVE (NEGATIVE); RESPIRATORY SYNCYTIAL VIR NAA NEGATIVE (NEGATIVE)
== END 2022-06-05 23:45 | disposition home or self-care (01) ==
LOC: DL.ED 22:18
DX: B34.9 Viral infection, unspecified (principal); Z91.040 Latex allergy status; Z88.8 Allergy status to other drugs, medicaments and biological substances; Z20.822 Contact with and (suspected) exposure to COVID-19
CPT/HCPCS: 0241U; 96372; 99282; 99283; J1885

== ENCOUNTER 2022-11-02 11:28 | Emergency (ER) | payer BC ==
[2022-11-02 12:04] VITALS: BP 153/81; PULSE 63
== END 2022-11-02 13:05 | disposition home or self-care (01) ==
LOC: DL.ED 11:28
DX: S06.0X0A Concussion without loss of consciousness, initial encounter (principal); S01.01XA Laceration without foreign body of scalp, initial encounter; S16.1XXA Strain of muscle, fascia and tendon at neck level, initial encounter; Z91.040 Latex allergy status; Z88.6 Allergy status to analgesic agent; Z88.8 Allergy status to other drugs, medicaments and biological substances; W19.XXXA Unspecified fall, initial encounter; Y92.009 Unspecified place in unspecified non-institutional (private) residence as the place of occurrence of the external cause
CPT/HCPCS: 70450; 72125; 99283

== ENCOUNTER 2023-07-24 23:44 | Emergency (ER) | payer SELFPAY ==
[2023-07-25 00:10] LABS: APPEARANCE,URINE CLOUDY (CLEAR); BILIRUBIN,URINE NEGATIVE (NEGATIVE); COLOR,URINE DARK YELLOW (YELLOW); GLUCOSE,URINE NEGATIVE (NEGATIVE); KETONES,URINE NEGATIVE (NEGATIVE); LEUKOCYTE ESTERASE,URINE LARGE (NEGATIVE); NITRITE,URINE POSITIVE (NEGATIVE); OCCULT BLOOD,URINE LARGE (NEGATIVE); PROTEIN,URINE >=300 (NEGATIVE)
[2023-07-25 00:21] LABS: BACTERIA,URINE MANY /HPF (0-FEW/HPF); EPITHELIAL CELLS,URINE FEW /HPF (NOT SEEN); RBC,URINE >100 /HPF (0-5); WBC,URINE 75-100 /HPF (0-5/HPF)
[2023-07-25 00:48] VITALS: BP 151/83; PULSE 70
[2023-07-25] MEDS: Take Home: Ciprofloxacin HCl 500 MG, 6 Tab Pack PO ONE (00:48)
== END 2023-07-25 00:54 | disposition home or self-care (01) ==
LOC: DL.ED 23:44
DX: N30.01 Acute cystitis with hematuria (principal); I10 Essential (primary) hypertension; Z90.710 Acquired absence of both cervix and uterus; Z88.6 Allergy status to analgesic agent; Z88.8 Allergy status to other drugs, medicaments and biological substances; Z91.040 Latex allergy status; Z90.49 Acquired absence of other specified parts of digestive tract
CPT/HCPCS: 81001; 87086; 87088; 87186; 99284; A9270-GY

== ENCOUNTER 2024-07-27 11:13 | Emergency (ER) | payer BC ==
[2024-07-27] MEDS: Ketorolac 30 MG/ML SDV IM ONE (12:38)
[2024-07-27] MEDS: Ondansetron 4 MG Tab.DIS PO ONE (12:38)
[2024-07-27 12:51] VITALS: BP 131/70; PULSE 60
== END 2024-07-27 12:45 | disposition home or self-care (01) ==
LOC: DL.ED 11:13
DX: R51.9 Headache, unspecified (principal); H43.393 Other vitreous opacities, bilateral; I10 Essential (primary) hypertension; Z88.5 Allergy status to narcotic agent; Z88.8 Allergy status to other drugs, medicaments and biological substances; Z91.040 Latex allergy status; Z79.899 Other long term (current) drug therapy; Z90.49 Acquired absence of other specified parts of digestive tract; Z90.710 Acquired absence of both cervix and uterus
CPT/HCPCS: 70450; 96372; 99284; A9270; J1885

== ENCOUNTER 2024-08-07 00:05 | Emergency (ER) | payer BC ==
[2024-08-07] MEDS ORDERED: Sodium Chloride 0.9% 10 ML Syringe FLUSH PRN (00:19)
[2024-08-07] MEDS ORDERED: Nitroglycerin 0.4 MG Tab.SL SL ONE (00:19)
[2024-08-07] MEDS: Aspirin 81 MG Tab.Chew PO ONE (00:27)
[2024-08-07 00:41] LABS: BASOPHILS PERCENT AUTO 0.4 % (0.0-1.0); EOSINOPHILS PERCENT AUTO 3.5 % (1.0-3.0); HEMATOCRIT 36.6 % (37.0-47.0); HEMOGLOBIN 12.1 g/dL (12.0-16.0); LYMPHOCYTES PERCENT AUTO 43.2 % (20.5-50.1); MEAN CORPUSCULAR HEMOGLOBIN 32.5 pg (27.0-34.0); MEAN CORPUSCULAR HGB CONC 33.1 g/dL (33.0-35.0); MEAN CORPUSCULAR VOLUME 98.4 fL (80-100); MONOCYTES PERCENT AUTO 9.1 % (2-8); NEUTROPHILS PERCENT AUTO 43.8 % (42.2-75.2); PLATELET COUNT,PLT 183 10^3/uL (150-450); RED BLOOD CELL COUNT 3.72 10^6/uL (4.2-5.4); WHITE BLOOD CELL COUNT,WBC 5.5 10^3/uL (5.0-10.0)
[2024-08-07 01:01] LABS: ALBUMIN 3.2 g/dL (3.4-5.0); ANION GAP 14.9 mEq/L (7-13); BILIRUBIN TOTAL 0.3 mg/dL (0.2-1.0); BUN/CREATININE RATIO 29.3 (No establ ref range); CALCIUM 9.4 mg/dL (8.5-10.1); CREATININE 0.82 mg/dL (0.55-1.02); MAGNESIUM 1.9 mg/dL (1.8-2.4); POTASSIUM,K 3.9 mmol/L (3.5-5.1); PROTEIN TOTAL,TP 7.3 g/dL (6.4-8.2)
[2024-08-07 01:02] LABS: A/G RATIO 0.78
[2024-08-07 01:16] VITALS: BP 121/65; PULSE 70
[2024-08-07 01:27] LABS: INR 0.9 (0.9-1.2); PROTHROMBIN TIME 9.9 SEC (9.0-12.0)
== END 2024-08-07 01:53 | disposition home or self-care (01) ==
LOC: DL.ED 00:05
DX: R07.89 Other chest pain (principal); I10 Essential (primary) hypertension; Z88.6 Allergy status to analgesic agent; Z91.040 Latex allergy status; Z79.899 Other long term (current) drug therapy; Z90.49 Acquired absence of other specified parts of digestive tract
CPT/HCPCS: 36415; 71046; 80053; 83690; 83735; 84484; 85025; 85610; 93005; 93010; 99284; 99285; A9270